=== PATIENT | female | born 1975 | race Caucasian/White ===

== ENCOUNTER → 2021-03-20 13:01 | Outpatient (BNVA) | payer BC, SELFPAY | PROVIDERS: Family Provider Family Medicine; PCP Family Medicine; Visit Provider Nurse Practitioner | DX: J02.9 Acute pharyngitis, unspecified (principal) | CPT/HCPCS: 87880 ==

== ENCOUNTER 2023-05-13 20:27 | Emergency (ER) | payer OTHER, SELFPAY ==
[2023-05-13 20:32] VITALS: BP 155/96; PULSE 82; RESP 16; TEMP 37.2; O2SAT 98; BMI 25.6
--- NOTE | 2023-05-13 21:27 | XRR_ITS ---
PROCEDURE INFORMATION: Exam: XR Left Hand Exam date and time: 05/13/2023 9:34 PM Age: 48 years old Clinical indication: Injury or trauma; Other: Smashed lt 4th finger; Work related; Crushing; Left; Ring finger TECHNIQUE: Imaging protocol: Radiologic exam of the left hand. Views: 3 or more views. COMPARISON: No relevant prior studies available. FINDINGS: Bones/joints: Normal. Soft tissues: Normal. XR/XR hand LT min 3V* [id number] IMPRESSION: No acute findings.
--- NOTE | 2023-05-13 22:02 | ED_ITS ---
HPI - Wound/Laceration General: Chief Complaint: Wound/Laceration Stated Complaint: right hand lac Time Seen by Provider: 05/13/23 21:42 Source: patient Mode of arrival: ambulatory Limitations: no limitations History of Present Illness: 48yo female presents from work for evalu ation of a wound to the left ring finger. Patient reports an automatic door closed on her finger at approximately 2005. Patient states that she does have laceration and increased pain to the end of her ring finger, but also does have discomfort to her middle finger. Patient reports her tetanus was in 2019. Patient is right-hand dominant. She denies any other injury or concern at this time. Associated symptoms: Denies fever(s) Review of Systems Const: Denies: fever(s) Musc: Reports: extremity pain (left ring finger) and extremity swelling (left ring finger) [facility] ED PFSH: Social History Smoking and tobacco/nicotine status: former use of tobacco/nicotine Physical Exam Const: COMMON NORMALS: no acute distress GENERAL APPEARANCE: cooperative ORIENTATION/CONSCIOUSNESS: Yes awake OTHER: Patient is ambulatory to the exam room unassisted. She is sitting upright on stretcher no acute distress. She is able to give history with no difficulty. Family is at bedside Chest: CHEST: Yes Symmetrical chest wall rise Resp: COMMON NORMALS: normal respiratory effort Extremity: LEFT UPPER EXTREMITY: Yes hand & digits (left ring (4th) digit) Left hand and digits: Yes inspection (localized swelling, scant bleeding, l aceration) and Yes palpation (tenderness) Procedures Laceration Laceration 1: Site: hand (ring finger) Side (If applicable): left Size (cm): 1.5 Description: linear Depth: simple, single layer Local Anesthetic: lidocaine 1% and bupivacaine 0.5% Amount of anesthesia used (mL): 4 Pre-repair: wound explored and irrigated extensively Size (cm): other (tissue adhesive) Course Vital Signs: Vital signs: Vital Signs Temperature 98.9 F 05/13/23 20:32 Pulse Rate 82 05/13/23 20:32 Respiratory Rate 16 05/13/23 20:32 Blood Pressure 155/96 05/13/23 20:32 Pulse Oximetry 98 05/13/23 20:32 Oxygen Delivery Me thod Room Air 05/13/23 20:32 MDM - Wound/Laceration Medical Decision Making 48yo female here with family for evaluation of a wound to the left ring finger that occurred at 2004 when an automatic door shut on her finger while at work. Patient reports she is right-hand dominant. Tetanus updated in 2019. She denies any other injury or concern at this time. Patient is nontoxic in appearance. Vital signs are stable. Independent review of the x-ray is concerning for a tiny avulsion fracture of the distal tuft. Radiologist review reveals no acute abnormalities. Discussed the x-ray findings and concern for tiny avulsion fracture with patient and family. Reviewed x-ray images with patient and family as well. Lacerations are noted to be shallow and were repaired with tissue adhesive. Discussed wound care. Aluminum splint applied by nursing to protect the finger while it is healing. Advised rest, ice, elevation, Tylenol/ibuprofen to help with pain and swelling. Recommend follow-up with primary care/Workmen's Comp. doctor next week for recheck, sooner if needed. Advised to return to emergency department if any further injury, rapid worsening symptoms, and as needed. Patient and family state understanding and have no further questions or concerns at this time. Lab Data Radiology Impressions Hand X-Ray 05/13/23 21:27 IMPRESSION: No acute findings. All radiology interpretation(s) finalized by discharge ED provider radiology interpretation(s): Independent review concerning for tiny avulsion fracture of the distal tuft fourth digit Discharge Plan Discharge Patient Disposition: Home Clinical Impression: Crushing injury of left ring finger, initial encounter, Closed fracture of tuft of distal phalanx of left ring finger, Superficial laceration of finger Condition: Stable Prescriptions: No Action benzonatate 200 mg capsule 200 mg PO BID PRN (Reason: cough) Qty: 14 0RF Discharge Orders: Discharge ED (Routine); Ordered 05/13/23 Ordered By: Italo Zhu Referrals: Arturo Anguiano MD [Primary Care Provider] - Discharge Diet: Usual diet Discharge Activity: Increase activity as tolerated Patient Instructions: Finger Fracture (ED) Activity Restrictions/Additional Instructions: X-ray is concerning for a very small avulsion fracture of the distal tuft. There is no treatment for this fracture other than protecting the finger from further injury. The superficial lacerations were repaired with tissue adhesive. Do not apply Neosporin or petroleum based products to the tissue adhesive as it will potentially cause it to breakdown too soon. Tylenol and/ibuprofen as needed for pain and comfort You may apply a cool compress and elevate the hand to help with pain and swelling Use the provided splint to protect your finger from further injury Follow-up with your doctor or Workmen's Comp. doctor for recheck in about a week Return to the emergency department if further injury and as needed Stand Alone Forms: Work/School Release Coding Level of Care Code ED [employer] Supervisor for Swati Garcia
== END 2023-05-13 23:09 | disposition home or self-care (01) ==
PROVIDERS: Emergency Provider Nurse Practitioner; Family Provider Family Medicine; PCP Family Medicine
DX: S67.195A Crushing injury of left ring finger, initial encounter (principal); S62.635A Displaced fracture of distal phalanx of left ring finger, initial encounter for closed fracture; S61.215A Laceration without foreign body of left ring finger without damage to nail, initial encounter; Z87.891 Personal history of nicotine dependence; W23.0XXA Caught, crushed, jammed, or pinched between moving objects, initial encounter
CPT/HCPCS: 12001; 73130; 99283